=== PATIENT | female | born 1960 | race Caucasian/White ===

== ENCOUNTER 2016-09-04 20:14 | Emergency (ER) | payer OTHER ==
[~2016-09-04] VITALS: Ht 165.1 cm; Wt 59.0 kg
[~2016-09-04 20:14] MED LIST: HYDR-3533 PO; PERC10TA27 PO
[2016-09-04 20:15] VITALS: BP 140/88; PULSE 67; RESP 16; TEMP 98.5; O2SAT 98
--- NOTE | 2016-09-04 20:59 | PD ---
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 Vital signs reviewed. Seen at triage desk. Awaiting bed placement. Data Data Last Documented VS Vital Signs Date Time Temp Pulse Resp B/P Pulse Ox O2 Delivery O2 Flow Rate FiO2 09/04/16 20:15 98.5 67 16 140/88 98 Room Air [facility] Medical Record Reviewed: Yes Supervised Visit with JACY: Job Jarrett Sep 04, 2016 20:59
[2016-09-04] MEDS ORDERED: LIDOCAINE HCL 1% 30 ML VIAL INFIL ONE (22:00)
[2016-09-04] MEDS ORDERED: TETANUS/DIPHTHERIA TOXOID ADULT 0.5 ML VIAL IM ONE (22:00)
[2016-09-04] MEDS ORDERED: BUPIVACAINE HCL PF 0.5% 10 ML VIAL INFIL ONE (22:00)
--- NOTE | 2016-09-04 22:00 | PD ---
HPI Chief Complaint: Laceration/Skin Injury Time Seen by Provider: 21:57 Travel History International Travel<30 days: No Contact w/Intl Traveler<30days: No Traveled to known affect area: No History of Present Illness HPI Patient comes in for evaluation of laceration to the distal tip of her left pinky finger that occurred shortly prior to arrival. Patient states her dog took off running causing her to fall cutting her finger with her cell phone. Patient reports her tetanus shot is not up-to-date. Patient denies doing anything for this prior coming to the emergency department. Patient reports pain around the site of laceration without radiation. Pain is worse with palpation. Denies anything making the pain better. PFSH Past Medical History Medical History: Denies Significant Hx Cancer: No Cardiovascular Problems: No Cerebrovascular Accident: No Diabetes: No Diminished Hearing: No Endocrine: No Genitourinary: No Hepatitis: No Hiatal Hernia: No Immune Disorder: No Musculoskeletal: No Neurologic: No Psychiatric: No Respiratory: No Myocardial Infarction: No Thyroid Disease: No Menopausal: Yes : 4 Para: 4 Miscarriage: 0 Past Surgical History AICD: No Body Medical Devices: NONE PER PT Gynecologic Surgery: Yes (TUBAL LIGATON) Joint Replacement: No Pacemaker: No Social History Alcohol Use: No Tobacco Use: Yes (1/2 PPD X 30 YEARS) Substance Use: No Allergies-Medications (Allergen,Severity, Reaction): Coded Allergies: No Known Allergies (Verified , 09/04/16) Reported Meds & Prescriptions Reported Meds & Active Scripts Active No Active Prescriptions or Reported Medications Review of Systems Except as stated in HPI: all other systems reviewed are Neg Physical Exam Narrative GENERAL: Well-developed, well nourished, in no acute distress, and non-ill appearing. SKIN: Laceration noted palmar surface left pinky finger. There is no foreign body noted. Patient is neurovascularly intact and has full range of motion. HEAD: Atraumatic. Normocephalic. EYES: Pupils equal and round. EOMI. No scleral icterus. No injection or drainage. ENT: No nasal bleeding or discharge. Mucous membranes pink and moist. NECK: Trachea midline. Supple. No nuclear rigidity. RESPIRATORY: No accessory muscle use. No respiratory distress. MUSCULOSKELETAL: No obvious deformities. No clubbing. No cyanosis. No edema. Full range of motion. NEUROLOGICAL: Awake and alert. No obvious cranial nerve deficits. Motor grossly within normal limits. Normal speech. PSYCHIATRIC: Appropriate mood and affect; insight and judgment normal. Data Data Last Documented VS Vital Signs Date Time Temp Pulse Resp B/P Pulse Ox O2 Delivery O2 Flow Rate FiO2 09/04/16 20:15 98.5 67 16 140/88 98 Room Air Orders Finger ([id number]) (09/04/16 ) Tetanus/Diphtheria Tox Adult (Tetanus/Di (09/04/16 22:00) Bupivacaine Pf 0.5% Inj (Marcaine Pf 0.5 (09/04/16 22:00) Lidocaine 1% Inj (Xylocaine 1% Inj) (09/04/16 22:00) MDM Medical Decision Making Medical Screen Exam Complete: Yes Emergency Medical Condition: Yes Interpretation(s) Finger x-ray read by the radiologist shows: There is a laceration of the left fifth finger. No acute fracture or dislocation. Bones osteopenic. Differential Diagnosis Fracture, open fracture, laceration, abrasion, other Narrative Course The patient suffered laceration to the finger. There was no evidence to suggest foreign bodies. Visual, tactile and radiographic exams were unremarkable without evidence of foreign body at this time. There was no evidence of neurovascular injury. The patient had a normal distal vascular exam, and had full normal motor and sensory exams. There was also no evidence or tendon injury , with normal distal full range of motions, flexion, extension, abduction, adduction and opponens. There was no evidence of local joint space involvement at this time. The patient was irrigated with copious sterile normal saline and primary repair was performed. Please see procedure note. The patient was given signs and symptom warnings for infection, such as increasing pain, redness, swelling, associated heat, pus or fever. The patient was warned of possible unseen foreign body and instructed to return immediately if signs or symptoms develop. The patient was given instructions for timely follow up. The patient agreed with plan of care. Patient in no obvious distress upon re-evaluation. All pertinent Radiology result(s) discussed with patient. Any questions/concerns in reference to patient diagnosis/condition discussed and clarified prior to patient's discharge. Reinforced sheer importance of close follow up with patient's primary physician or primary care clinic. Instructed patient to return to ED immediately, if symptoms return/worsen. Pt showed understanding of above instructions. Further instructions and recommendations were detailed in discharge paperwork. Pt ambulated without difficulty out of ED at discharge. Procedures Procedure Narrative LACERATION REPAIR LOCATION: Left pinky distal phalanx palmar surface LENGTH: Approximately 2 cm in total length irregularly shaped NUMBER OF STITCHES/DARINEL: 4 simple interrupted REPAIR: Verbal consent was obtained. The area of the laceration was cleaned and prepped. Digital block was performed using a mixture of lidocaine without epi and Marcaine without epi. The wound was copiously irrigated and explored without evidence of foreign body, bony involvement, ligament injury, tendon injury, or neurovascular injury. The wound was closed using 5-0 Vicryl. This was a single layer repair. A sterile dressing was applied by nurse. The patient was advised to keep the affected area as clean and dry as possible using soap and water. There were no complications. Patient tolerated the procedure well. Diagnosis Primary Impression: Finger laceration Qualified Code: S61.217A - Laceration of left little finger without foreign body without damage to nail, initial encounter Patient Instructions: Care For Your Absorbable Stitches (ED), Finger Laceration (ED), General Instructions Additional Instructions: Follow-up with your primary care physician next week for reevaluation. Keep wound dry and clean as possible using soap and water. Use Neosporin to promote healing. Do not soak or submerge wound. Return to the emergency department if symptoms get worse. Scripts No Active Prescriptions or Reported Meds Disposition: 01 DISCHARGE HOME Condition: Stable Tomas Morillo Sep 04, 2016 22:00
--- NOTE | 2016-09-04 22:01 | RADRPT ---
EXAM DATE/TIME: 09/04/2016 21:36 [facility] COMPARISON: No previous studies available for comparison. INDICATIONS : Left fifth digit hand laceration from fall. MEDICAL HISTORY : None. SURGICAL HISTORY : None. ENCOUNTER: Initial ACUITY: 1 day PAIN SCORE: 10/10 LOCATION: Left 5th digit; hand. FINDINGS: Examination of the fifth digit of the left hand demonstrates no evidence of fracture or dislocation. No radiopaque foreign bodies are seen. The soft tissues are lacerated at the fifth finger. CONCLUSION: 1. There is a laceration of the left fifth finger. No acute fracture or dislocation. Bones osteopenic . Alex Bazan MD on September 04, 2016 at 21:58 Board Certified Radiologist. This report was verified electronically.
== END 2016-09-04 23:32 | disposition home or self-care (01) ==
LOC: NEPK 20:14
DX: S61.217A Laceration without foreign body of left little finger without damage to nail, initial encounter (principal); Z23 Encounter for immunization; F17.200 Nicotine dependence, unspecified, uncomplicated; W18.30XA Fall on same level, unspecified, initial encounter; Y93.K1 Activity, walking an animal
CPT/HCPCS: 12001; 73140; 90471; 90714